=== PATIENT | female | born 1975 | race Caucasian/White ===

== ENCOUNTER 2017-08-15 16:08 | Emergency (ER) | payer SELFPAY ==
[~2017-08-15] VITALS: Ht 175.3 cm; Wt 140.0 kg
[2017-08-15 16:10] VITALS: TEMP 36.6; Ht 175.3 cm; Wt 140.0 kg
--- NOTE | 2017-08-15 16:39 | EMERGENCY ROOM VISIT NOTE ---
History Report prepared by Giancarlo: Adia Fernando Under the Supervision of: Dr. Fahad Dubois M.D. First contact with patient: 16:36 Chief Complaint: VOMITING Stated Complaint: VOMITING, SEVERE ABDOMINAL PAIN, NAUSEA History of Present Illness The patient is a 42 year old female who presents to the Emergency Room with complaints of vomiting beginning last night. The patient reports that she is also having abdominal pain and nausea, and rates her pain at an 8/10. She states that she has thrown up bile twice now, and that she was hypotensive today. She states that she has had diarrhea after every time she eats, but that this has been chronic for her. She denies burning with urination, and a history of diabetes. The patient was at the [facility] prior to arrival, where she had a CT scan and ultrasound done. The patient reports that she was told her gallbladder looked normal, but that she would need a HIDA scan and then surgery. She reports that she asked why she would need surgery if her gallbladder looked fine, but was then kicked out of the [facility]. The patient's CT impression from [facility] is: essentially normal CT scan of the abdomen pelvis except for an intrarenal calculus on the left. There is fatty infiltration of the liver. The patient's US impression from [facility] is: Fatty infiltration of the liver are with fatty sparing adjacent to the gallbladder. Limited evaluation of the gallbladder with sludge versus artifact. A definite gallstone is not seen. ED Concrete Block Layer Note from [facility]: "Dr Dickey went in to talk with pt about plan of acre and pt became belligerent with Dr. Dickey, pt was wanting Dr. Dickey to call a surgeon to have her gall bladder removed pt does not refusing Dr. Carrasco because she does not like him. Hugo Garcia was called, pt iv d/sandi and pt discharged with psychiatric security nurse." Source of History: patient Onset: last night Position: other (global) Symptom Intensity: rated at an 8/10 Quality: other (vomiting) Associated Symptoms: + nausea, + abdominal pain, No urinary symptoms Review of Systems See HPI for pertinent positives and negatives. A total of ten systems were reviewed and were otherwise negative. Past Medical & Surgical Medical Problems: (1) No active medical problems Family History Diabetes mellitus Social History Smoking Status: Current Every Day Smoker Marital Status: Current/Historical Medications Scheduled Famotidine (Pepcid), 20 MG PO BID Scheduled PRN Metoclopramide (Reglan), 10 MG PO Q6H PRN for Nausea or Vomiting Allergies Coded Allergies: No Known Allergies (Unverified , 08/15/17) Physical Exam Vital Signs Date Time Temp Pulse Resp B/P (MAP) Pulse Ox O2 Delivery O2 Flow Rate FiO2 08/15/17 22:45 79 17 135/89 92 08/15/17 21:00 65 17 120/53 96 Room Air 08/15/17 18:58 67 19 125/66 98 Room Air 08/15/17 17:59 81 19 136/79 98 Room Air 08/15/17 16:10 36.6 75 17 125/79 98 Room Air Physical Exam GENERAL: Awake, alert, uncomfortable appearing, in no acute distress HENT: Normocephalic, atraumatic. Oropharynx unremarkable. Dry mucous membranes. EYES: Normal conjunctiva. Sclera non-icteric. NECK: Supple. No nuchal rigidity. FROM. No JVD. RESPIRATORY: Clear to auscultation. CARDIAC: Regular rate, normal rhythm. Extremities warm and well perfused. Pulses equal. ABDOMEN: Obese. Distended, but soft. Generalized tenderness throughout. No rebound or guarding. No masses. RECTAL: Deferred. MUSCULOSKELETAL: Chest examination reveals no tenderness. The back is symmetrical on inspection without obvious abnormality. There is no CVA tenderness to palpation. No joint edema. LOWER EXTREMITIES: Calves are equal size bilaterally and non-tender. No edema. No discoloration. NEURO: Normal sensorium. No sensory or motor deficits noted. SKIN: No rash or jaundice noted. Medical Decision & Procedures Laboratory Results 08/15/17 17:29 Red Blood Count 4.53, Mean Corpuscular Volume 87.2, Mean Corpuscular Hemoglobin 29.8, Mean Corpuscular Hemoglobin Concent 34.2, Mean Platelet Volume 9.9, Neutrophils (%) (Auto) 69.7, Lymphocytes (%) (Auto) 24.7, Monocytes (%) (Auto) 4.1, Eosinophils (%) (Auto) 0.9, Basophils (%) (Auto) 0.2, Neutrophils # (Auto) 6.45, Lymphocytes # (Auto) 2.29, Monocytes # (Auto) 0.38, Eosinophils # (Auto) 0.08, Basophils # (Auto) 0.02 08/15/17 17:29 Test 08/15/17 17:29 White Blood Count 9.26 K/uL (4.8-10.8) Red Blood Count 4.53 M/uL (4.2-5.4) Hemoglobin 13.5 g/dL (12.0-16.0) Hematocrit 39.5 % (37-47) Mean Corpuscular Volume 87.2 fL (80-100) Mean Corpuscular Hemoglobin 29.8 pg (25-34) Mean Corpuscular Hemoglobin Concent 34.2 g/dl (32-36) Platelet Count 256 K/uL (130-400) Mean Platelet Volume 9.9 fL (7.4-10.4) Neutrophils (%) (Auto) 69.7 % Lymphocytes (%) (Auto) 24.7 % Monocytes (%) (Auto) 4.1 % Eosinophils (%) (Auto) 0.9 % Basophils (%) (Auto) 0.2 % Neutrophils # (Auto) 6.45 K/uL (1.4-6.5) Lymphocytes # (Auto) 2.29 K/uL (1.2-3.4) Monocytes # (Auto) 0.38 K/uL (0.11-0.59) Eosinophils # (Auto) 0.08 K/uL (0-0.5) Basophils # (Auto) 0.02 K/uL (0-0.2) RDW Standard Deviation 39.5 fL (36.4-46.3) RDW Coefficient of Variation 12.2 % (11.5-14.5) Immature Granulocyte % (Auto) 0.4 % Immature Granulocyte # (Auto) 0.04 K/uL (0.00-0.02) Anion Gap 6.0 mmol/L (3-11) Est Creatinine Clear Calc Drug Dose 149.2 ml/min Estimated GFR () 114.8 Estimated GFR (Non- 99.0 BUN/Creatinine Ratio 14.9 (10-20) Lactic Acid Level 0.8 mmol/L (0.4-2.0) Calcium Level 8.0 mg/dl (8.5-10.1) Total Bilirubin 0.8 mg/dl (0.2-1) Direct Bilirubin < 0.1 mg/dl (0-0.2) Aspartate Amino Transf (AST/SGOT) 15 U/L (15-37) Alanine Aminotransferase (ALT/SGPT) 29 U/L (12-78) Alkaline Phosphatase 67 U/L (45-117) Total Protein 6.9 gm/dl (6.4-8.2) Albumin 3.6 gm/dl (3.4-5.0) Lipase 194 U/L (73-393) Laboratory results reviewed by me Medications Administered Medications (Trade) Dose Ordered Sig/Deondre Route Start Time Stop Time Status Last Admin Dose Admin Sodium Chloride 1,000 ml @ 999 mls/hr Q1H1M STAT IV 08/15/17 17:13 08/15/17 18:13 DC 08/15/17 17:45 999 MLS/HR Metoclopramide HCl (Reglan Inj) 10 mg NOW STAT IV 08/15/17 17:13 08/15/17 17:18 DC 08/15/17 17:43 10 MG Diphenhydramine HCl (Benadryl Inj) 25 mg NOW STAT IV 08/15/17 17:13 08/15/17 17:18 DC 08/15/17 17:43 25 MG Prochlorperazine Edisylate 10 mg/ Syringe 10 ml @ 5 mls/min NOW ONCE IV 08/15/17 20:30 08/15/17 20:31 DC 08/15/17 20:50 5 MLS/MIN Lorazepam (Ativan Inj) 0.5 mg NOW STAT IV 08/15/17 20:19 08/15/17 20:23 DC 08/15/17 20:50 0.5 MG Dextrose/Sodium Chloride 1,000 ml @ 250 mls/hr Q4H ONCE IV 08/15/17 20:30 08/15/17 23:02 DC 08/15/17 20:50 250 MLS/HR ED Course 1644: The patient was evaluated in room C11. A complete history and physical exam was performed. 1712: Ordered Benadryl Inj 25 mg IV, Reglan Inj 10 mg IV, Sodium Chloride 1,000 ml @ 999 mls/hr IV. 7: The patient states that she feels better but is still unsure if she feels well enough to go home. 1939: I checked on the patient again. She was feeling well but had something to drink and then felt worse. 2029: Discussed the patient's case with Dr. Rowan. The patient will be evaluated for further treatment and disposition. 2239: The patient was initially treated by hospitalist, but improved and changed her mind preferring discharge. Medical Decision I reviewed the patient's past medical history, medications, and the nursing notes as described above. Differentials include: biliary obstruction, pancreatitis, SBO, gastroparesis, gastroenteritis, gastritis, and peptic ulcer. Patient presents with persistent nausea and vomiting abdominal pain. History of present illness. Seen at [facility] earlier today with CT scan unremarkable but with ultrasound with question of sludge. Apparently there was a conflict there regarding disposition in the patient was kicked out of the emergency department. Arrival here the patient is uncomfortable, pain and nausea. Labs unremarkable and unchanged from earlier today. Patient improved after IV fluids and Reglan Rand when by mouth challenge with water was attempted became nauseated again. Thus we'll admit for an control and inability to tolerate by mouth. Likely will need HIDA scan and possible GI consultation for question of gastroparesis. Patient was admitted to the hospitalist service, was evaluated by Dr. Rowan, who treated patient's symptoms with additional IVF fluid hydration and Ativan with subsequent additional improvement in symptoms and changed her mind and preferred discharge. Patient was reassessed and appeared well. Findings and plan for follow-up d/w patient. Case management assisting to arrange for surgery and GI follow-up. Patient agreeable and d/c'd per discharge instructions. Medication Reconcilliation Current Medication List: was personally reviewed by me Blood Pressure Screening Patient's blood pressure: Normal blood pressure Consults Time Called: 1946 Consulting Physician: Dr. Rowan- [place] Returned Call: 2029 Discussed the patient's case. The patient will be evaluated for further treatment and disposition. Impression Primary Impression: Nausea Additional Impressions: Vomiting Abdominal pain Scribe Attestation The scribe's documentation has been prepared under my direction and personally reviewed by me in its entirety. I confirm that the note above accurately reflects all work, treatment, procedures, and medical decision making performed by me. Departure Information Dispostion Home / Self-Care Prescriptions Famotidine (PEPCID) 20 Mg Tab 20 MG PO BID for 10 Days, #20 TAB Prov: Fahad Dubois M.D. 08/15/17 Metoclopramide (Reglan) 10 Mg Tab 10 MG PO Q6H Y for Nausea or Vomiting, #20 TAB NAUSEA Prov: Fahad Dubois M.D. 08/15/17 Referrals Jillian Horton (PCP) Forms HOME CARE DOCUMENTATION FORM, IMPORTANT VISIT INFORMATION Patient Instructions Abdominal Pain, ED Diet Vomiting Wwo Diarrhea Ch, ED Gastritis, Gastroparesis, My [facility] Additional Instructions Please follow up with general surgery and gastroenterology for re-evaluation. The exact cause of her symptoms is not clear at this time. However, possibilities include, but are not gallbladder symptoms, gastritis, gastroparesis Otherwise, your exam, lab results, and imaging from [facility] did not show signs of an emergent condition at this time. Take reglan as directed for nausea. Pepcid for acid reduction. Return to the emergency department for worsening symptoms as described in the accompanying instructions. Problem Qualifiers
[2017-08-15] MEDS ORDERED: METOCLOPRAMIDE HCL INJ 5 MG/ML 2 ML VIAL IV STA (17:13)
[2017-08-15] MEDS ORDERED: SODIUM CHLORIDE 0.9% 1000ML 1,000 ML IV STA (17:13)
[2017-08-15] MEDS ORDERED: DiphenhydrAMINE HCL 50 MG/ML VIAL IV STA (17:13)
[2017-08-15 18:06] LABS: BASO % 0.2 %; BASO ABS # 0.02 K/uL (0-0.2); COMPLETE YES; EOS % 0.9 %; HEMATOCRIT 39.5 % (37-47); IG% 0.4 %; LYMPH % 24.7 %; LYMPH ABS # 2.29 K/uL (1.2-3.4); MEAN CELL VOLUME 87.2 fL (80-100); MEAN CORPUSCULAR HEMOGLOBIN 29.8 pg (25-34); MEAN CORPUSCULAR HGB CONC 34.2 g/dl (32-36); MEAN PLATELET VOLUME 9.9 fL (7.4-10.4); MONO % 4.1 %; NEUT % 69.7 %; PLATELET COUNT 256 K/uL (130-400); RED BLOOD COUNT 4.53 M/uL (4.2-5.4); WHITE BLOOD COUNT 9.26 K/uL (4.8-10.8)
[2017-08-15 18:27] LABS: ALT/SGPT 29 U/L (12-78); AST/SGOT 15 U/L (15-37); BLOOD UREA NITROGEN 11 mg/dl (7-18); BUN/CREATININE RATIO 14.9 (10-20); CARBON DIOXIDE 26 mmol/L (21-32); CHLORIDE 106 mmol/L (98-107); CREATININE 0.75 mg/dl (0.60-1.20); GLUCOSE 96 mg/dl (70-99); POTASSIUM 4.2 mmol/L (3.5-5.1); SODIUM 138 mmol/L (136-145)
[2017-08-15 18:34] LABS: ALKALINE PHOSPHATASE 67 U/L (45-117)
[2017-08-15] MEDS ORDERED: LORAZEPAM 2 MG/ML 1 ML VIAL IV STA (20:19)
[2017-08-15] MEDS ORDERED: D5W AND NSS 1,000 ML IV ONE (20:30)
[2017-08-15] MEDS ORDERED: PROCHLORPERAZINE INJ 10 MG in SYRINGE 8 ML IV ONE (20:30)
[2017-08-15] MEDS ORDERED: PROCHLORPERAZINE 5 MG/ML 2 ML VIAL ONE (20:36)
--- NOTE | 2017-08-15 21:28 | Medical Consult ---
Consultation Date of Consultation: Aug 15, 2017. Attending Physician: History of Present Illness 42 y/o F who denies any significant medical history. The pt earlier had presented to the ER at [facility] for persistent nausea/vomiting and central abdominal pain. She has diarrhea as well but states that this is chronic. She does not c/o of fevers/rigors or RUQ pain. A CT was obtained at [facility] which did not reveal any acute abnormalities. Apparently at [facility], the pt was instructed that she should pursue a HIDA scan. She was set to be evaluated by the surgeon teletypesetter monitor prior to DC but did not wish to remain at that particular hospital and departed of her own accord. Her nausea and vomiting recurred and she presented to the ER at [facility]. Past Medical/Surgical History Medical Problems: (1) Abdominal pain Status: Acute (2) Nausea Status: Acute (3) Vomiting Status: Acute Family History Diabetes mellitus Social History Smoking Status: Current Every Day Smoker Marital Status: Allergies Coded Allergies: No Known Allergies (Unverified , 08/15/17) Current Inpatient Medications Current Inpatient Medications Medications (Trade) Dose Ordered Sig/Deondre Route Start Time Stop Time Status Last Admin Dose Admin Dextrose/Sodium Chloride 1,000 ml @ 250 mls/hr Q4H ONCE IV 08/15/17 20:30 08/16/17 00:29 08/15/17 20:50 250 MLS/HR Review of Systems Constitutional: No fever, No chills, No sweats Eyes: No worsening of vision ENT: No hearing loss, No unusual epistaxis, No nasal symptoms Respiratory: No cough, No sputum, No wheezing Cardiovascular: No chest pain, No orthopnea, No PND Abdomen: + pain, + nausea, + vomiting, + diarrhea Musculoskeletal: No joint pain Genitourinary - Female: No dysuria, No urinary frequency, No urinary urgency Neurologic: No memory loss, No paralysis, No weakness Psychiatric: No depression symptoms Endocrine: No fatigue Hematologic / Lymphatic: No abnormal bleeding/bruising Integumentary: No rash Allergic / Immunologic: No environmental allergies Physical Exam Date Time Temp Pulse Resp B/P (MAP) Pulse Ox O2 Delivery O2 Flow Rate FiO2 08/15/17 21:00 65 17 120/53 96 Room Air 08/15/17 18:58 67 19 125/66 98 Room Air 08/15/17 17:59 81 19 136/79 98 Room Air 08/15/17 16:10 36.6 75 17 125/79 98 Room Air General Appearance: WD/WN, no apparent distress, + pertinent finding (Morbidly obese young female - no acute distress) Head: normocephalic Eyes: normal inspection ENT: normal ENT inspection, pharynx normal Neck: supple, no JVD Respiratory/Chest: chest non-tender, lungs clear, normal breath sounds Cardiovascular: regular rate, rhythm, no edema, no gallop Abdomen/GI: normal bowel sounds, non tender, soft, + pertinent finding (Mild diffuse tenderness - primarily in central abdomen) Back: normal inspection, no CVA tenderness, no muscle spasm Extremities/Musculoskelatal: normal inspection, no calf tenderness, normal capillary refill, no pedal edema, normal range of motion Neurologic/Psych: house worker general II-XII nml as tested, no motor/sensory deficits, alert, normal mood/affect, normal reflexes, oriented x 3 Skin: normal color, warm/dry, no rash Laboratory Results Last 24 Hours Test 08/15/17 17:29 White Blood Count 9.26 K/uL Red Blood Count 4.53 M/uL Hemoglobin 13.5 g/dL Hematocrit 39.5 % Mean Corpuscular Volume 87.2 fL Mean Corpuscular Hemoglobin 29.8 pg Mean Corpuscular Hemoglobin Concent 34.2 g/dl Platelet Count 256 K/uL Mean Platelet Volume 9.9 fL Neutrophils (%) (Auto) 69.7 % Lymphocytes (%) (Auto) 24.7 % Monocytes (%) (Auto) 4.1 % Eosinophils (%) (Auto) 0.9 % Basophils (%) (Auto) 0.2 % Neutrophils # (Auto) 6.45 K/uL Lymphocytes # (Auto) 2.29 K/uL Monocytes # (Auto) 0.38 K/uL Eosinophils # (Auto) 0.08 K/uL Basophils # (Auto) 0.02 K/uL RDW Standard Deviation 39.5 fL RDW Coefficient of Variation 12.2 % Immature Granulocyte % (Auto) 0.4 % Immature Granulocyte # (Auto) 0.04 K/uL Sodium Level 138 mmol/L Potassium Level 4.2 mmol/L Chloride Level 106 mmol/L Carbon Dioxide Level 26 mmol/L Anion Gap 6.0 mmol/L Blood Urea Nitrogen 11 mg/dl Creatinine 0.75 mg/dl Est Creatinine Clear Calc Drug Dose 149.2 ml/min Estimated GFR () 114.8 Estimated GFR (Non- 99.0 BUN/Creatinine Ratio 14.9 Random Glucose 96 mg/dl Lactic Acid Level 0.8 mmol/L Calcium Level 8.0 mg/dl Total Bilirubin 0.8 mg/dl Direct Bilirubin < 0.1 mg/dl Aspartate Amino Transf (AST/SGOT) 15 U/L Alanine Aminotransferase (ALT/SGPT) 29 U/L Alkaline Phosphatase 67 U/L Total Protein 6.9 gm/dl Albumin 3.6 gm/dl Lipase 194 U/L Assessment & Plan 42 y/o F who denies any significant medical history. The pt earlier had presented to the ER at [facility] for persistent nausea/vomiting and central abdominal pain. She has diarrhea as well but states that this is chronic. She does not c/o of fevers/rigors or RUQ pain. A CT was obtained at [place] which did not reveal any acute abnormalities. Apparently at [place], the pt was instructed that she should pursue a HIDA scan. She was set to be evaluated by the surgeon teletypesetter monitor prior to DC but did not wish to remain at that particular hospital and departed of her own accord. Her nausea and vomiting recurred and she presented to the ER at [facility]. The pt was provided with antiemetics and aggressive IVF. Differential would include acute gastritis in addition to occult gallbladder disease. We feel as her symptoms have resolved following fluids and antiemetics , she can likely follow-up in the outpt setting. Indeed the pt was requesting to be released from the ER. No significant lab abnormalities were noted and the above was discussed in detail with the pt, family at bedside and the ER attending. Total time for this consult - 33 min
[2017-08-15] MEDS ORDERED: METO-157 PO (22:36)
[2017-08-15] MEDS ORDERED: FAMO20TA9 PO (22:36)
[2017-08-15 22:45] VITALS: BP 135/89; PULSE 79; O2SAT 92
[2017-08-28] MEDS ORDERED: OXYC-57 PO (12:31)
== END 2017-08-15 22:40 | disposition home or self-care (01) ==
LOC: C.EDB 16:10 → C.EDC 22:40
DX: R11.2 Nausea with vomiting, unspecified (principal); R10.9 Unspecified abdominal pain; Z83.3 Family history of diabetes mellitus; F17.200 Nicotine dependence, unspecified, uncomplicated

== ENCOUNTER → 2017-08-27 | Outpatient (CLI) | payer SELFPAY ==
[~2017-08-27] MED LIST: METO-157 PO; OXYC-57 PO
--- NOTE | 2017-08-27 12:15 | DIAGNOSTIC IMAGING REPORT ---
NUCLEAR GASTRIC EMPTYING STUDY CLINICAL HISTORY: Generalized abdominal pain. COMPARISON STUDY: No priors. TECHNIQUE: Following the oral administration of 1.1 mCi of technetium 99m sulfur colloid in egg sandwich and 8 ounces of water, static abdominal images are obtained anteriorly and posteriorly at 0 minutes, 1 hour, 2 hour, and 4 hour time intervals. Gastric emptying was calculated utilizing the geometric mean method. FINDINGS: There is approximately 52% activity remaining at the 1 hour time interval, 15% remaining at the 2 hour time interval (normal is less than 60%), and 0% activity remaining at the 4 hour time interval (normal is less than 10%). IMPRESSION: Findings are consistent with normal gastric emptying for solids. Electronically signed by: Jasbir Philip M.D. 08/27/2017 12:14 PM Dictated Date/Time: 08/27/2017 12:13 PM
== END | disposition home or self-care (01) ==
LOC: C.NUCL 07:32
PROVIDERS: ATTEND Nurse Practitioner Family
DX: R10.31 Right lower quadrant pain (principal)

== ENCOUNTER → 2017-08-28 | Day surgery (SDC) | payer SELFPAY ==
[~2017-08-28] VITALS: Ht 175.3 cm; Wt 140.0 kg
[~2017-08-28] MED LIST changes: +ALBUTEROL HFA INHALER 8.5 GM INH ONE; +ATROPINE SULFATE 0.1 MG/ML 5ML SYR IV PRN; +BACITRACIN OINT 15 GM TUBE ONE; +BUPIVACAINE 0.5 % 5 MG/1 ML MPF 30ML VIAL ONE; +CEFAZOLIN 2000 MG/60 ML D5W IV SCH; +CEFAZOLIN IV 2,000 MG/60 ML D5W IV SCH; +CHECK SCOPOLAMINE PATCH PLACEMENT SCH; +DEXAMETHASONE SOD INJ 4 MG/ML VIAL ONE; +EpHEDrine SULFATE INJ 50 MG/ML AMP IV PRN; +FENTANYL CITRATE INJ 50 MCG/1 ML 2 ML VIAL ONE; +FLUMAZENIL 0.1 MG/1 ML 10 ML VIAL IV PRN; +GELATIN SPONGE SZ 100 ONE; +GLYCOPYRROLATE INJ 0.2 MG/ML VIAL ONE; +HYDROmorphone INJ 2 MG/ML SYR/VIAL IV PRN; +KETOROLAC TROMETHAMINE 30 MG/ML VIAL ONE; +LABETALOL HCL IV 5 MG/ML 20ML IV ONE; +LABETALOL HCL IV 5 MG/ML 20ML IV PRN; +LACTATED RINGER'S 1000ML 1,000 ML IV SCH; +LARYING-O-JET KIT (LTA) ONE; +LIDOCAINE HCL 1% 20 ML VIAL ONE; +LIDOCAINE HCL 2% 2 ML VIAL (20MG/ML) ONE; +MANNITOL 25% 50 ML VIAL ONE; +MEPERIDINE HCL 25 MG/ML CARP IV PRN; +MIDAZOLAM HCL 1 MG/ML 2ML VIAL ONE; +MoRPHine SULFATE 2 MG/ML CARP IV PRN; +MoRPHine SULFATE 4 MG/ML 1 ML CARP\\VIAL IV PRN; +NALOXONE HCL 0.4 MG/1 ML VIAL/CARP IV PRN; +NEOSTIGMINE METHYLSULFATE 5 MG/5 ML SYR ONE; +NURSING VERBAL MED ORDER ONE; +ONDANSETRON INJ 2 MG/ML 2 ML VIAL IV PRN; +ONDANSETRON INJ 2 MG/ML 2 ML VIAL ONE; +OXYCODONE/ACETAMINOPHEN 5-325 TAB PO PRN; +PHENYLEPHRINE 100MCG/ML 5ML SYR IV PRN; +PROMETHAZINE HCL INJ 25 MG in SODIUM CHLORIDE 0.9% 50ML 50 ML IV ONE; +PROPOFOL IV EMULSION 10 MG/ML 20 ML VIAL IV ONE; +ROCURONIUM BROMIDE 10 MG/ML 5 ML VIAL IV ONE; +SCOPOLAMINE 1.5 MG TDSY TD ONE; +SCOPOLAMINE 1.5 MG TDSY TD SCH; +SUCCINYLCHOLINE CHLORIDE 20 MG/ML 10 ML VIAL IV ONE
[2017-08-28 07:46] VITALS: BP 113/63; PULSE 70; TEMP 37; O2SAT 97; Ht 175.3 cm; Wt 140.0 kg
--- NOTE | 2017-08-28 10:30 | History & Physical Bridge Note ---
H&P Re-Evaluation Bridge Note: I have examined the patient, reviewed the History & Physical and in the interval since the performance of the History & Physical I have noted the following changes of clinical significance: No changes noted
--- NOTE | 2017-08-28 12:27 | [facility] Post Operative Brief Note ---
Immediate Operative Summary Operative Date Aug 28, 2017. Pre-Operative Diagnosis Chronic Cholecystitis Post-Operative Diagnosis Chronic Chocystitis Procedure(s) Performed Laparoscoic Cholecystectomy Surgeon Dr. Pedersen Senior Technical Analyst Surgeon(s) Yennifer Hoff PA-C Estimated Blood Loss 10 cc Findings chronic cholecystitis Fluids (cc crystalloids) 1500ml Specimens A: Gallbladder and contents Drains none Anesthesia general Complication(s) None Disposition Recovery Room / PACU
--- NOTE | 2017-08-28 12:36 | Discharge Instructions ---
Discharge Instructions Date of Service Aug 28, 2017. Admission Reason for Admission: Acute Chronic Cholecystitis Discharge Discharge Diagnosis / Problem: same Discharge Goals Goal(s): Decrease discomfort, Improve function Activity Recommendations Activity Limitations: as noted below No heavy lifting over 20 pounds for 2-3 weeks No strenuous activity until cleared by surgeon No submerging incisions underwater for 2 weeks (no bathing, swimming, or hot tubs) No driving while taking narcotic pain medication or until you are pain free . Instructions / Follow-Up Instructions / Follow-Up You may shower in 3 days, may remove dressings before showering. You may sponge bath and wash hair in meantime. Try to keep dressings clean and dry. Keep steri strips on incisions for 7 days, they may fall off on their own that is okay. You do not need to keep the incisions covered with dressing after you shower unless they are draining Follow-up with Dr. Pedersen in 1 week, please call office at [phone] if you do not already have an appointment Current Hospital Diet Patient's current hospital diet: Discharge Diet Recommended Diet: Regular Diet, Low Fat Diet Procedures Procedures Performed: Laparoscoic Cholecystectomy Pending Studies Studies pending at discharge: yes List of pending studies: gallbladder pathology- will be reviewed at follow-up visit Medical Emergencies . Who to Call and When: Medical Emergencies: If at any time you feel your situation is an emergency, please call 911 immediately. . Non-Emergent Contact Non-Emergency issues call your: Primary Care Provider, Surgeon Call Non-Emergent contact if: you have a fever, temperature is above 101.5, your pain is not controlled, your pain is worsening, your pain is unusual for you, wound has increased drainage, wound has increased redness, wound has increased pain . "Provider Documentation" section prepared by Yennifer Hoff. . VTE Core Measure Inpt VTE Proph given/why not?: SCD's [place] Drug Monitoring Program Search Results: patient reviewed within database, no issues identified
[2017-08-28] MEDS: FENTANYL CITRATE INJ 50 MCG/1 ML 2 ML VIAL IV PRN ×2 (13:08→13:25)
--- NOTE | 2017-08-28 13:12 | OPERATIVE REPORT ---
DATE OF OPERATION: 08/28/2017 PREOPERATIVE DIAGNOSIS: Chronic cholecystitis. POSTOPERATIVE DIAGNOSIS: Same. PROCEDURE: Laparoscopic cholecystectomy. SURGEON: Dr. Valentino Pedersen. ANESTHESIA: General. ESTIMATED BLOOD LOSS: About 10 mL. IV FLUIDS: 1500 mL. FINDINGS: Chronic cholecystitis. COMPLICATIONS: None. INDICATIONS FOR THE PROCEDURE: This is a 42-year-old female who presented with right upper quadrant pain and the patient was diagnosed with chronic cholecystitis. The patient will be required to do laparoscopic cholecystectomy, possible open, possible cholangiogram. I did talk to the patient about the benefit and risk, alternate procedure. I indicated the risks may include but not limited such as bleeding, infection, injury to common bile duct, injury to bowel, incisional hernia, may need ERCP. The patient understands. She signed informed consent and I answered all questions. DETAILS OF PROCEDURE: We brought the patient to the OR, put the patient in the supine position. The patient received SCD on bilateral legs to prevent DVT. Also, the patient received 3000 mg Ancef IV for prophylactic antibiotic. The patient received general anesthesia without difficulty. The abdomen was prepped and draped in routine sterile fashion. After a timeout, I injected local anesthesia by using 1% lidocaine mixed with 0.5% Marcaine just above umbilical, opened fascia. Then I made the incision just above umbilical, opened fascia, opened peritoneum under direct vision. I put a Davie trocar in, connected to CO2 to create pneumoperitoneum. Flow rate is 6 liter per minute. Pressure not more than 14 mmHg. Once we got a nice pneumoperitoneum, we put a 10 mm camera in looked around the abdomen shows no more findings on the stomach, small bowel, large bowel, liver; however, there was some omentum covers the gallbladder. The gallbladder showing chronic cholecystitis. The gallbladder wall had thickening, edema and then we put another 3.5 mm trocar on the right upper quadrant. Once all trocars in I put grasper in to hold the base of the gallbladder, put direction to the diaphragm and put another grasper in to hold the pouch gallbladder, put the latter to expose the triangle of Calot. The cystic duct was identified and mobilized. I put two 5 mm metal clips on the proximal cystic duct, one on the distal cystic duct, then I used scissor transection the cystic duct. Then the cystic artery was identified and mobilized. I put two 5 mm metal clips on the proximal cystic artery, one on the distal cystic artery, then I used scissor transection the cystic artery. Rechecked no active bleeding, no bile leak. Then I used Bovie to take down the gallbladder from the liver bed without difficulty. Then we pulled out the gallbladder through the catch bag and then we reinserted Davie trocar, connected to CO2 to create pneumoperitoneum. Again looked around the abdomen, no active bleeding, no bile leak from the liver bed and no injury to bowel. Then we removed all trocars under direct vision. No active bleeding from trocar sites. The pneumoperitoneum was released. Then I closed the umbilical incision, fascial layer by using #1 Vicryl [id number] x2, closed subcutaneous layer by using 2-0 Vicryl, closed skin by using 4-0 Vicryl, another 3.5 mm trocar site closed skin only by using 4-0 Vicryl. Then we put the dressing on. The patient tolerated the procedure well. All instrument, needle and sponge count correct x2 at the end of the case. The gallbladder specimen sent to pathology. The patient transferred to recovery room in stable condition. After the procedure, I did talk to the patient's family member about OR finding and procedure we did. They understand. I attest to the content of the Intraoperative Record and any orders documented therein. Any exception s are noted below.
--- NOTE | 2017-08-28 13:48 | Anesthesiology Progress Note ---
Anesthesia Post Op Note Date & Time Aug 28, 2017 at 13:47 Vital Signs Pain Intensity: 4 Vital Signs Past 12 Hours Date Time Temp Pulse Resp B/P (MAP) Pulse Ox O2 Delivery O2 Flow Rate FiO2 08/28/17 13:41 69 21 93 08/28/17 13:41 70 21 135/65 08/28/17 13:38 36.8 08/28/17 13:36 85 24 08/28/17 13:36 84 24 97 08/28/17 13:35 126/89 08/28/17 13:33 67 19 92 08/28/17 13:33 68 19 08/28/17 13:31 111/83 08/28/17 13:28 66 14 08/28/17 13:28 65 14 93 08/28/17 13:27 70 16 08/28/17 13:27 71 16 96 08/28/17 13:25 111/89 08/28/17 13:22 80 13 96 08/28/17 13:22 78 13 08/28/17 13:20 127/92 08/28/17 13:17 68 16 08/28/17 13:17 68 16 94 08/28/17 13:15 128/80 08/28/17 13:12 69 20 92 08/28/17 13:12 70 20 08/28/17 13:11 70 19 08/28/17 13:11 70 19 126/89 92 08/28/17 13:06 70 17 08/28/17 13:06 69 17 134/95 92 08/28/17 13:01 73 18 08/28/17 13:01 73 18 99 08/28/17 13:00 152/99 08/28/17 12:56 65 21 133/38 93 08/28/17 12:56 65 21 08/28/17 12:51 65 21 08/28/17 12:51 65 21 92 08/28/17 12:50 68 19 08/28/17 12:50 67 19 121/66 95 08/28/17 12:46 120/69 08/28/17 12:45 78 29 08/28/17 12:45 77 29 97 08/28/17 12:41 126/51 08/28/17 12:40 68 22 08/28/17 12:40 68 22 92 10/12/17 12:35 75 22 122/61 94 08/28/17 12:35 36.2 78 15 122/61 98 Oxymask 10 08/28/17 12:35 75 22 08/28/17 07:46 37 70 18 113/63 (80) 97 Room Air Notes Mental Status: alert / awake / arousable, participated in evaluation Pt Amnestic to Procedure: Yes Nausea / Vomiting: adequately controlled, improving with treatment Pain: adequately controlled Airway Patency, RR, SpO2: stable & adequate BP & HR: stable & adequate Hydration State: stable & adequate Anesthetic Complications: no major complications apparent
[2017-08-28 13:52] VITALS: BP 125/60; PULSE 74; TEMP 36.8; O2SAT 95
[2017-08-28 14:20] VITALS: BP 131/75; PULSE 84; O2SAT 96
[2017-08-28 14:50] VITALS: BP 130/86; PULSE 78; TEMP 37.2; O2SAT 94
== END | disposition home or self-care (01) ==
LOC: C.ACU 07:26
PROVIDERS: ATTEND Surgery
DX: K81.1 Chronic cholecystitis (principal); E66.01 Morbid (severe) obesity due to excess calories; F17.210 Nicotine dependence, cigarettes, uncomplicated; B02.29 Other postherpetic nervous system involvement; Z68.42 Body mass index [BMI] 45.0-49.9, adult